=== PATIENT | male | born 1995 | race American Indian/Alaskan Native ===

== ENCOUNTER 2019-05-21 18:40 | Emergency (ER) | payer SELFPAY ==
--- NOTE | 2019-05-21 20:28 | Emergency Department Report ---
Chief Complaint: Earache Stated Complaint: PAIN IN LEFT Time Seen by Provider: 05/21/19 20:22 - HPI History of Present Illness: 24 y o male presents with left ear stuffiness and ache x 2 days. Pt denies injury, fb or trauma to ear He denies fever, chills, n/v - ROS Review of Systems: as noted in HPi - Exam Physical Exam: GENERAL: Alert and oriented x3, no apparent distress, Normal Gait, atraumatic. HEAD: Head is normocephalic and a-traumatic. EYES: Extra ocular muscles are intact. Pupils are equal, round, and reactive to light and accommodation. EARS: symetrical, atraumatic, non tender, ear canal clear filled with moderate cerumen, tympanic membrance non inflamed. gross auditory nml bilaterally. NOSE: Nose symetrical, Nontender,Nares appeared normal. MSE screening note: Focused history and physical exam performed. Due to findings the following was ordered: ED Medical Decision Making - Medical Decision Making 24-year-old female who presents with cerumen wax in the ears. Discussed with patient earwax removal drops. Also discussed with patient to follow-up with primary care physician to have his ears evaluated and irrigated if needed. Patient's hearing is preserved. Patient had no loss of hearing. Patient understand instructions and will follow-up ED Disposition for MSE Clinical Impression: Excess ear wax Disposition: Z-07 MED SCREENING EXAM-LEFT Is pt being admited?: No Does the pt Need Aspirin: No Condition: Stable Instructions: Carbamide Peroxide (Into the ear), Cerumen Impaction (ED) Additional Instructions: follow up with pcp use debrox or any ear wax removal drops in ears 2-3 time a day Referrals: [facility] [Outside] - 3-5 Days [facility] [Outside] - 3-5 Days [facility] [Outside] - 3-5 Days Forms: Work/School Release Form(ED) Time of Disposition: 20:28
== END 2019-05-21 20:50 | disposition left against medical advice (07) ==
LOC: ED 18:40
DX: H61.22 Impacted cerumen, left ear (principal)
CPT/HCPCS: 99281